=== PATIENT | male | born 1955 | race Two or more races ===

== ENCOUNTER 2024-04-07 16:09 | Inpatient (IN) | payer BC ==
[~2024-04-07] VITALS: Ht 172.7 cm; Wt 87.5 kg
[2024-04-07 17:07] LABS: BASOPHILS # (AUTO) 0.1 K/uL (0.0-0.2); BASOPHILS % (AUTO) 0.8 % (0.0-2.0); EOSINOPHILS # (AUTO) 0.2 K/uL (0.0-0.7); EOSINOPHILS % (AUTO) 1.5 % (0.0-6.0); HEMATOCRIT 38 % (39-51); LYMPHOCYTES # (AUTO) 2.1 K/uL (0.8-4.8); LYMPHOCYTES % (AUTO) 20.1 % (20.0-44.0); MEAN CORPUSCULAR HEMOGLOBIN 18 PG (26.0-33.0); MEAN CORPUSCULAR HGB CONC 29 g/dl (31.0-36.0); MEAN CORPUSCULAR VOLUME 61 fL (80-96); MONOCYTES # (AUTO) 0.7 K/uL (0.1-1.30); MONOCYTES % (AUTO) 6.4 % (2.0-12.0); NEUTROPHILS # (AUTO) 7.4 K/uL (1.8-8.9); NEUTROPHILS % (AUTO) 71.2 % (43.0-81.0); PLATELET COUNT (AUTO) 233 K/uL (150-450); RED BLOOD CELL COUNT(AUTO) 6.19 MIL/uL (4.5-6.0); RED CELL DISTRIBUTION WIDTH 21.7 % (11.5-15.0); WHITE BLOOD COUNT (AUTO) 10.4 K/uL (4.3-11.0)
[2024-04-07 17:30] LABS: CALCIUM, SERUM 8.6 mg/dL (8.5-10.1); CARBON DIOXIDE 25 mmol/L (21-32); CHLORIDE 103 mmol/L (98-107); GLUCOSE 205 mg/dL (74-106); SODIUM SERUM 138 mmol/L (136-145); UREA NITROGEN, BLOOD 12 mg/dL (7-18)
[2024-04-07 17:38] LABS: ALANINE AMINOTRANSFERASE 40 U/L (12-78); ALBUMIN 3.5 g/dL (3.4-5.0); ALKALINE PHOSPHATASE 130 U/L (46-116); ASPARTATE AMINOTRANSFERASE 32 U/L (15-37); BILIRUBIN,DIRECT 0.2 mg/dL (0.0-0.2); BILIRUBIN,TOTAL 0.5 mg/dL (0.2-1.0); TOTAL PROTEIN, SERUM 7.1 g/dL (6.4-8.2)
[2024-04-07] MEDS ORDERED: POTA10TA11 PO (17:52)
[2024-04-07] MEDS ORDERED: EMPA25TA PO (17:52)
[2024-04-07] MEDS ORDERED: TELM40TA2 PO (17:52)
[2024-04-07] MEDS ORDERED: [UNRECOGNIZED DRUG - CODE] PO (17:52)
[2024-04-07] MEDS ORDERED: ONDANSETRON HCL/PF 4 MG/2 ML VIAL IVP PRN (18:30)
[2024-04-07] MEDS ORDERED: Z GUARD REMEDY 4 OZ OINT TP PRN (18:30)
[2024-04-07] MEDS: ENOXAPARIN SODIUM 40 MG/0.4 ML DISP.SYRIN SQ SCH (18:30)
[2024-04-07] MEDS ORDERED: ZOLPIDEM TARTRATE 5 MG TABLET PO PRN (18:30)
[2024-04-07] MEDS ORDERED: MAGNESIUM HYDROXIDE 30 ML UDC PO PRN (18:30)
[2024-04-07] MEDS ORDERED: ACETAMINOPHEN 325 MG TABLET PO PRN (18:30)
[2024-04-07] MEDS ORDERED: MAG HYDROX/AL HYDROX/SIMETH 30 ML UDC PO PRN (18:30)
[2024-04-07 19:00] VITALS: BP 175/95; TEMP 98.2; O2SAT 99
[2024-04-07] MEDS ORDERED: DEXTROSE 50%-WATER 50 ML DISP.SYRIN IV PRN (19:00)
[2024-04-07 19:46] VITALS: BP 175/95; TEMP 98.2; O2SAT 100
[2024-04-07] MEDS ORDERED: IOHEXOL-300 100 ML VIAL IV ONE (21:05)
[2024-04-07] MEDS ORDERED: CT SWABBABLE VALVE TRANS SET 1 EA INFUS.SET MC ONE (21:05)
[2024-04-07] MEDS ORDERED: IV NS 0.9% 0 ML IV ONE (21:05)
[2024-04-07] MEDS: BLOOD SUGAR DIAGNOSTIC 1 EACH STRIP VI SCH (21:49)
[2024-04-07] MEDS: *INSULIN REGULAR(HUMULIN R)HUM 100 UNIT/ML VIAL SQ PRN (21:50)
[2024-04-07 23:53] VITALS: BP 145/90; TEMP 98.2; O2SAT 99
[2024-04-08 05:44] VITALS: BP 159/98; TEMP 97.8; O2SAT 98
[2024-04-08 05:46] VITALS: BP 148/92; TEMP 97.8; O2SAT 98
[2024-04-08 05:47] VITALS: BP 138/97; TEMP 97.8; O2SAT 98
[2024-04-08] MEDS: INSULIN REGULAR, HUMAN 100 UNIT/ML 3 ML VIAL SQ PRN (06:37)
[2024-04-08] MEDS: PANTOPRAZOLE 40 MG TABLET.DR PO SCH (07:57)
[2024-04-08] MEDS: EMPAGLIFLOZIN 25 MG TABLET PO SCH (08:06)
[2024-04-08] MEDS: LOSARTAN POTASSIUM 50 MG TABLET PO SCH (08:06)
[2024-04-08 08:39] VITALS: BP 139/98; TEMP 98.4; O2SAT 97
[2024-04-08] MEDS ORDERED: LOSARTAN POTASSIUM 50 MG TABLET PO SCH (09:00)
[2024-04-08 11:00] LABS: MAGNESIUM 2.1 mg/dL (1.8-2.4); PHOSPHORUS 3.5 mg/dL (2.5-4.9)
[2024-04-08 11:11] LABS: THYROID STIMULATING HORMONE 2.711 uIU/mL (0.358-3.74)
[2024-04-08 16:18] VITALS: BP 163/102; TEMP 98.4; O2SAT 98
[2024-04-08 20:00] VITALS: BP 144/97; TEMP 99.1; O2SAT 95
[2024-04-09 08:00] VITALS: BP 150/94; TEMP 97.9; O2SAT 96
[2024-04-09 12:00] VITALS: BP 144/77; TEMP 98.2; O2SAT 99
== END 2024-04-09 18:10 | disposition short-term general hospital (02) | DRG 308 ==
LOC: ER 16:33 → TELE 20:09
PROVIDERS: ADMIT Student in an Organized Health Care Education/Training Program; ATTEND Student in an Organized Health Care Education/Training Program
DX: I49.9 Cardiac arrhythmia, unspecified (principal); I46.9 Cardiac arrest, cause unspecified; R55 Syncope and collapse; E11.65 Type 2 diabetes mellitus with hyperglycemia; I10 Essential (primary) hypertension; Z88.0 Allergy status to penicillin; Z79.84 Long term (current) use of oral hypoglycemic drugs; R74.8 Abnormal levels of other serum enzymes; R25.2 Cramp and spasm; D64.9 Anemia, unspecified; R93.1 Abnormal findings on diagnostic imaging of heart and coronary circulation; G47.33 Obstructive sleep apnea (adult) (pediatric); D56.9 Thalassemia, unspecified; Z91.041 Radiographic dye allergy status; Z86.16 Personal history of COVID-19
CPT/HCPCS: 36415; 70450-TC; 71045-TC; 80048-TC; 80061-TC; 80076-TC; 82962-TC; 83735-TC; 84100-TC; 84439-TC; 84443-TC; 84484-TC; 85025-TC; 93307-TC; 93880-TC; 97110-TC; 97116-TC; 97530-TC; G0378; J1650; J1815; J7050; Q9967